=== PATIENT | female | born 1985 | race Caucasian/White ===

== ENCOUNTER 2019-01-15 09:34 | Outpatient (CLI) | payer OTHER ==
[~2019-01-15] VITALS: Ht 172.7 cm; Wt 80.9 kg
[~2019-01-15 09:34] MED LIST: NO HOME MEDICATIONS
[2019-01-15 09:43] VITALS: BP 108/57; PULSE 73; TEMP 98.1
[2019-01-15] MEDS ORDERED: PRENATAL TABLET PO (09:47)
[2019-01-15 09:50] VITALS: BP 97/51; PULSE 71
--- NOTE | 2019-01-15 09:50 | NUR ---
Patient ambulatory to unit accompanied by mother. Patient states around 0200 she fell on her back while painting. Patient denies any leaking of fluid, vaginal bleeding but does state that baby has not been moving as much since the fall. Patient was seeing Dr. Falcon but just transferred care to doctor in [place] since she moved there. G1L0, 35 weeks gestation, denies any complications of prenancy. FHR and contraction monitors placed and explained. Patient denies feeling any pain in back or contractions. Dr. Maxwell sizing sponger and notified of patient. Orders received.
[2019-01-15 10:26] VITALS: BP 95/50; PULSE 66
--- NOTE | 2019-01-15 10:30 | NUR ---
Patient states she is feeling more movement. Discharge instructions reviewed with her and mother. Verbalize understanding.
== END 2019-01-15 10:35 | disposition home or self-care (01) ==
LOC: LDRO 09:34 → LDR 09:34 → LDRO 09:43
DX: O9A.213 Injury, poisoning and certain other consequences of external causes complicating pregnancy, third trimester (principal); Z3A.35 35 weeks gestation of pregnancy
CPT/HCPCS: OP